=== PATIENT | female | born 1965 | race Caucasian/White ===

== ENCOUNTER 2017-02-08 12:51 | Emergency (ER) | payer OTHER ==
[~2017-02-08] VITALS: Ht 170.2 cm; Wt 81.2 kg
[~2017-02-08 12:51] MED LIST: BUSPIRONE HCL10 MG PO; CALCIUM + VITA1 EAC1 PO; CIPRODEX 0.3%-7.5 ML OP; CYCLOBENZAPRINE10 M1 PO; CYCLOBENZAPRINE10 M2 PO; ESCITALOPRAM OX10 MG PO; ESCITALOPRAM10 MG PO; FERRALET 90 TA1 EACH PO; HYDROCODONE/ACE1 TA1 PO; IBU800 MG PO; IBUPROFEN800 M1 PO; MECLIZINE HCL25 MG PO; MONTELUKAST SOD10 MG PO; NASONEX17 GM NASB; PANTOPRAZOLE SO40 M1 PO; PERCOCET 325 MG1 TA2 PO; PERCOCET 5-3251 EACH PO; POLYTRIM EYE DR10 ML OPH; PROAIR HFA8.5 GM INH; QUETIAPINE FUMA25 M1 PO; SYMBICORT 16010.2 GM INH; TRAMADOL HCL50 MG PO
--- NOTE | 2017-02-08 13:05 | ED EYE COMPLAINT ---
History of Present Illness General Chief Complaint: Eye Problems Stated Complaint: eye pain Source: patient Exam Limitations: no limitations Vital Signs & Intake/Output Vital Signs & Intake/Output Vital Signs Date Time Temp Pulse Resp B/P Pulse O2 O2 Flow FiO2 Ox Delivery Rate 02/08 1432 78 16 134/91 98 Room Air 02/08 1259 98.7 91 20 160/92 98 Allergies Coded Allergies: erythromycin base (Severe, HIVES 02/08/17) Reconcile Medications Albuterol Sulfate (Proair Hfa) 8.5 GM HFA.AER.AD 2 PUF INH Q4-6 PRN PRN ASTHMA (Reported) Budesonide/Formoterol Fumarate (Symbicort 160-4.5 Mcg Inhaler) 10.2 GM HFA.AER.AD 2 PUF INH BID ASTHMA (Reported) Calcium Carbonate/Vitamin D3 (Calcium + Vitamin D Tablet) 1 EACH TABLET 1 TAB PO DAILY SUPPLEMENT (Reported) Cyclobenzaprine HCl 10 MG TABLET 1 TAB PO QPM PRN MUSCLE RELAXER (Reported) Desloratadine (Clarinex) 5 MG TABLET 1 TAB PO DAILY ALLERGIC RHINITIS Escitalopram Oxalate 10 MG TABLET 1 TAB PO DAILY MENTAL HEALTH (Reported) Hydrocortisone 2.5 % CREAM..G. 1 AYLA TOP BID PRN ALLERGIC REACTION apply to affected area(s) Ibuprofen 800 MG TABLET 1 TAB PO PRN PAIN (Reported) Iron Carb,Gl/FA/B12/C/Docusate (Ferralet 90 Tablet) 1 EACH TABLET 1 TAB PO DAILY ANEMIA (Reported) Meclizine HCl 25 MG TABLET 1 TAB PO BID PRN DIZZINESS (Reported) Methylprednisolone. (Medrol) 4 MG TAB.DS.PK 1 DP PO AD INFLAMMATION 6 on day 1 then reduce by one tablet daily until gone Mometasone Furoate (Nasonex) 17 GM SPRAY.PUMP 1 SPRAY NASB PRN CONGESTION ( Reported) Oxycodone HCl/Acetaminophen (Percocet 5-325 MG Tablet) 5 MG-325 MG TABLET 1 TAB PO TID PRN PAIN Pantoprazole Sodium 40 MG TABLET.DR 1 TAB PO DAILY GI (Reported) Polytrim (Polytrim Eye Drops) 10,000 UNIT-1 MG/ML DROPS 1 GTT OPH Q6 CONJUNCTIVITIS Quetiapine Fumarate 25 MG TABLET 1 TAB PO QHS MENTAL HEALTH (Reported) Triage Note: C/O PAINFUL, RED, ITCHY RIEYE SINCE LAST PM, AND A ITCHY RASH ON BOTH ARMS AND ABDOMEN X 3 WEEKS. Triage Nurses Notes Reviewed? yes Onset: Gradual Duration: getting worse Timing: recent history Severity: severe Severity Numbers: 10 Right Eye Associated Symptoms: burning, itching, pain, sensitivity to light HPI: Patient is a 52-year-old female who presents to emergency room with multiple complaints. Patient states that for the past 2 weeks she is complaining of persistent bilateral upper extremity pruritus and itching complaints and scattered rashes where she has taken [id number] medications creams with no relief of symptoms. Patient denies any significant or specific exposures such as new irritants, new medications, or soaps or detergents. Patient also states that she has an everyday contact lens wearer where she began a new contact lens few days ago where yesterday she noted a gradual onset of right-sided eye pain and irritation redness clear discharge. Patient denies any trauma or mechanism injury. Patient states that she has not continue to use her contact lens. Patient does feel a foreign body sensation. Denies any change in vision or visual acuity abnormalities or blurred vision. Patient is also complaining of nasal congestion and runny nose. Past History Travel History Traveled to [place] past 21 day No Medical History Any Pertinent Medical History? 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 No Review of Systems Review of Systems Constitutional: Reports: no symptoms. Eyes: Reports: see HPI, drainage, foreign body sensation, inflammation, pain, photophobia. Ear: Reports: no symptoms. Nose: Reports: see HPI, congestion. Mouth: Reports: no symptoms. Throat: Reports: no symptoms. Respiratory: Reports: no symptoms. Cardiovascular: Reports: no symptoms. GI: Reports: no symptoms. Genitourinary: Reports: no symptoms. Musculoskeletal: Reports: no symptoms. Skin: Reports: see HPI, rash. Neurological/Psychological: Reports: no symptoms. Hematologic/Endocrine: Reports: no symptoms. Immunologic/Allergic: Reports: no symptoms. All Other Systems: Reviewed and Negative Physical Exam General Appearance: no apparent distress, alert, comfortable General Inspection: normal inspection Eyelid: normal inspection Conjunctiva/Sclera: normal inspection Cornea: normal inspection EOM: intact Pupil: normal accommodation, normal pupil, PERRL Anterior Chamber: normal inspection General Inspection: see diagram Eyelid: normal inspection Conjunctiva/Sclera: see diagram, injected Cornea: examined w/fluorescein, fluorescein dye uptake EOM: intact Pupil: normal accommodation, normal pupil, PERRL Anterior Chamber: normal inspection Eye Right 1) 1 mm circular fluorosceine uptake noted 2) 1 mm circular fluorosceine uptake noted Physical Exam Head: atraumatic Ears: Bilateral: canal normal, Tympanic normal. Nose: nasal congestion noted Mouth/Throat: normal mouth inspection, pharynx normal Neck: normal inspection, supple Cardiovascular/Respiratory: normal breath sounds, normal peripheral pulses, regular rate/rhythm Neurologic/Psych: no motor/sensory deficits, awake Skin: BILATERAL UPPER EXTREMITY SCATTERED EXCORIATIONS AND MACULAR PAPULAR SCABBING SKIN ERUPTIONS Progress Differential Diagnosis: corneal abrasion, corneal foreign body, conjunctivitis, detached retina, glaucoma, globe rupture, retinal art./v. occlusion, rash, allergic rhinits, scabies, Plan of Care: Patient was strongly advised to continue to not use her contact lenses. Patient was strongly advised today to follow up with ophthalmology. Patient was PERRLA. Patient will be treated for concerns of conjunctivitis and suspecting foreign body of right eye. Patient also was treated for allergic rhinitis and upper extremity rash. Departure Departure Disposition: HOME OR SELF CARE Condition: Stable Clinical Impression Primary Impression: Conjunctivitis of right eye Secondary Impressions: Allergic rhinitis, Rash Referrals: LAWANDA STALEY APRN (PCP/Family) Additional Instructions: As discussed continue to not use your contact lenses until you're symptoms are resolved. Today please follow up with your established cut pressman and/or follow-up with cut pressman Dr. Glynn for further evaluation treatment. Begin the prescription of Percocet for breakthrough pain relief. Begin the prescription of Clarinex for congestion, Medrol Dosepak for inflammation and hydrocortisone cream for your allergic reaction. If symptoms worsen return to the emergency room. Prescriptions awaiting a your pharmacy. Begin the prescription of Polytrim as directed for your EYE symptoms Departure Forms: Customer Survey General Discharge Information Prescriptions: Current Visit Scripts Desloratadine (Clarinex) 1 TAB PO DAILY #20 TAB Oxycodone HCl/Acetaminophen (Percocet 5-325 MG Tablet) 1 TAB PO TID PRN PAIN #6 TAB Methylprednisolone. (Medrol) 1 DP PO AD #1 DP 6 on day 1 then reduce by one tablet daily until gone Hydrocortisone 1 AYLA TOP BID PRN ALLERGIC REACTION #60 GM apply to affected area(s) Polytrim (Polytrim Eye Drops) 1 GTT OPH Q6 #10 ML
[2017-02-08 14:32] VITALS: BP 134/91
[2017-02-08] MEDS ORDERED: MEDROL4 M2 PO (14:39)
[2017-02-08] MEDS ORDERED: HYDROCORTISO453.6 G2 TOP (14:39)
[2017-02-08] MEDS ORDERED: CLARINEX5 M1 PO (14:39)
[2017-02-08] MEDS ORDERED: PERCOCET 5-3251 EACH PO (14:39)
[2017-02-08] MEDS ORDERED: POLYTRIM EYE DR10 ML OPH (14:51)
== END 2017-02-08 14:56 ==
LOC: ERH 12:51
DX: H10.9 Unspecified conjunctivitis (principal); J30.9 Allergic rhinitis, unspecified; R21 Rash and other nonspecific skin eruption

== ENCOUNTER 2017-04-02 00:48 | Emergency (ER) | payer OTHER ==
[~2017-04-02] VITALS: Ht 171.4 cm; Wt 80.7 kg
[~2017-04-02 00:48] MED LIST changes: +CLARINEX5 M1 PO; +HYDROCORTISO453.6 G2 TOP; +MEDROL4 M2 PO
--- NOTE | 2017-04-02 00:58 | ED EYE COMPLAINT ---
History of Present Illness General Chief Complaint: Eye Problems Stated Complaint: "PER PT RT EYE ?INFECTON" Source: patient Exam Limitations: no limitations Vital Signs & Intake/Output Vital Signs & Intake/Output Vital Signs Date Time Temp Pulse Resp B/P B/P Pulse O2 O2 Flow FiO2 Mean Ox Delivery Rate 04/02 0107 97.0 88 22 145/84 98 Room Air Allergies Coded Allergies: erythromycin base (Severe, HIVES 04/02/17) Reconcile Medications Albuterol Sulfate (Proair Hfa) 8.5 GM HFA.AER.AD 2 PUF INH Q4-6 PRN PRN ASTHMA (Reported) Budesonide/Formoterol Fumarate (Symbicort 160-4.5 Mcg Inhaler) 10.2 GM HFA.AER.AD 2 PUF INH BID ASTHMA (Reported) Calcium Carbonate/Vitamin D3 (Calcium + Vitamin D Tablet) 1 EACH TABLET 1 TAB PO DAILY SUPPLEMENT (Reported) Cetirizine HCl (Zyrtec) 10 MG TABLET 1 TAB PO DAILY ALLERGIES Cyclobenzaprine HCl 10 MG TABLET 1 TAB PO QPM PRN MUSCLE RELAXER (Reported) Desloratadine (Clarinex) 5 MG TABLET 1 TAB PO DAILY ALLERGIC RHINITIS Escitalopram Oxalate 10 MG TABLET 1 TAB PO DAILY MENTAL HEALTH (Reported) Hydrocortisone 2.5 % CREAM..G. 1 AYLA TOP BID PRN ALLERGIC REACTION apply to affected area(s) Ibuprofen 800 MG TABLET 1 TAB PO PRN PAIN (Reported) Iron Carb,Gl/FA/B12/C/Docusate (Ferralet 90 Tablet) 1 EACH TABLET 1 TAB PO DAILY ANEMIA (Reported) Meclizine HCl 25 MG TABLET 1 TAB PO BID PRN DIZZINESS (Reported) Methylprednisolone. (Medrol) 4 MG TAB.DS.PK 1 DP PO AD INFLAMMATION 6 on day 1 then reduce by one tablet daily until gone Mometasone Furoate (Nasonex) 17 GM SPRAY.PUMP 1 SPRAY NASB PRN CONGESTION ( Reported) Oxycodone HCl/Acetaminophen (Percocet 5-325 MG Tablet) 5 MG-325 MG TABLET 1 TAB PO 4XDP PRN PAIN FOUR...[id number] Oxycodone HCl/Acetaminophen (Percocet 5-325 MG Tablet) 5 MG-325 MG TABLET 1 TAB PO TID PRN PAIN Pantoprazole Sodium 40 MG TABLET.DR 1 TAB PO DAILY GI (Reported) Polytrim (Polytrim Eye Drops) 10,000 UNIT-1 MG/ML DROPS 2 GTT OPH Q6 CONJUNCTIVITIS X 7DAYS Polytrim (Polytrim Eye Drops) 10,000 UNIT-1 MG/ML DROPS 1 GTT OPH Q6 CONJUNCTIVITIS Quetiapine Fumarate 25 MG TABLET 1 TAB PO QHS MENTAL HEALTH (Reported) Triage Nurses Notes Reviewed? yes Onset: Gradual Duration: hour(s): Timing: recent history Injury Environment: home Severity: moderate Right Eye Associated Symptoms: burning, itching, eye redness HPI: 52 yo woman presents with right eye redness, burning, and discharge for the past several hours. She notes that she was working outside today. A few hours later, she developed redness, pain, and discharge in her right eye. She has no vision changes, no fever, chills, nausea, vomiting, diarrhea, headache. She is otherwise well. Past History Travel History Traveled to [place] past 21 day No Medical History Any Pertinent Medical History? 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 No Review of Systems Review of Systems Constitutional: Reports: no symptoms. Eyes: Reports: no symptoms. Ear: Reports: no symptoms. Nose: Reports: no symptoms. Mouth: Reports: no symptoms. Throat: Reports: no symptoms. Respiratory: Reports: no symptoms. Cardiovascular: Reports: no symptoms. GI: Reports: no symptoms. Genitourinary: Reports: no symptoms. Musculoskeletal: Reports: no symptoms. Skin: Reports: no symptoms. Neurological/Psychological: Reports: no symptoms. Hematologic/Endocrine: Reports: no symptoms. Immunologic/Allergic: Reports: no symptoms. All Other Systems: Reviewed and Negative Physical Exam General Appearance: well developed/nourished, mild distress General Inspection: normal inspection Eyelid: normal inspection Conjunctiva/Sclera: normal inspection Cornea: normal inspection EOM: intact Pupil: normal accommodation, normal pupil, PERRL General Inspection: normal inspection Eyelid: normal inspection Conjunctiva/Sclera: injected Cornea: normal inspection EOM: intact Pupil: normal accommodation, normal pupil, PERRL Physical Exam Head: atraumatic Nose: normal inspection Mouth/Throat: normal mouth inspection Neck: normal inspection, supple Skin: intact, normal color, warm/dry Progress Differential Diagnosis: conjunctivitis Plan of Care: tetracaine applied... pt felt instant relief.... pt will follow up with her opthalmologist later today. gave rx for polytrim. percocet per patient request. Departure Departure Disposition: HOME OR SELF CARE Condition: Stable Clinical Impression Primary Impression: Conjunctivitis Referrals: LAWANDA STALEY APRN (PCP/Family) Departure Forms: Customer Survey General Discharge Information Prescriptions: Current Visit Scripts Oxycodone HCl/Acetaminophen (Percocet 5-325 MG Tablet) 1 TAB PO 4XDP PRN PAIN #4 TAB FOUR...[id number] Cetirizine HCl (Zyrtec) 1 TAB PO DAILY #15 TAB Polytrim (Polytrim Eye Drops) 2 GTT OPH Q6 #20 ML X 7DAYS
[2017-04-02 01:07] VITALS: BP 145/84
[2017-04-02] MEDS ORDERED: POLYTRIM EYE DR10 ML OPH (01:22)
[2017-04-02] MEDS ORDERED: ZYRTEC10 M3 PO (01:22)
[2017-04-02] MEDS ORDERED: PERCOCET 5-3251 EACH PO (01:22)
== END 2017-04-02 01:31 ==
LOC: ERH 00:48
DX: H10.9 Unspecified conjunctivitis (principal)